=== PATIENT | female | born 1955 | race Caucasian/White ===

== ENCOUNTER 2018-01-05 12:30 | Outpatient (CLI) | payer OTHER ==
--- NOTE | 2018-01-12 11:49 | MMO ---
BILATERAL SCREENING MAMMOGRAM: Date: 01/05/18 HISTORY: Screening. COMPARISON: Mammograms from 2016, 2017 and 2016. TECHNIQUE: Bilateral screening CC and MLO mammograms. This patient's mammogram was interpreted with the assistance of computer-aided detection. FINDINGS: There are scattered fibroglandular densities. Multiple bilateral breast nodules are similar. No new s uspicious mass, architectural distortion, or microcalcifications. IMPRESSION: BIRADS 2: Benign Finding(s) Continued annual mammographic screening is recommended. POS: EZEQUIEL
== END 2018-01-05 12:31 | disposition home or self-care (01) ==
LOC: SCSMAMMO 12:30
PROVIDERS: ATTEND Family Medicine
DX: Z12.31 Encounter for screening mammogram for malignant neoplasm of breast (principal)
CPT/HCPCS: 77067

== ENCOUNTER 2019-03-29 10:20 | Outpatient (CLI) | payer MEDICARE, OTHER | END 2019-03-29 10:21 | disposition home or self-care (01) | LOC: DTY/OP 10:20 | PROVIDERS: ATTEND Surgery | DX: E66.01 Morbid (severe) obesity due to excess calories (principal) | CPT/HCPCS: 97802 ==

== ENCOUNTER 2019-05-01 06:06 | Outpatient (CLI) | payer MEDICARE, OTHER ==
[2019-05-01 10:51] LABS: #Basophils 0.1 thou/uL (0.0-0.2); #Eosinphils 0.1 thou/uL (0.0-0.7); #Lymphocytes 2.1 thou/uL (1.20-3.40); #Monocytes 0.5 thou/uL (0.11-0.59); #Neutrophils 4.2 thou/uL (1.40-6.50); %Basophils 0.7 % (0.0-1.0); %Eosinophils 1.7 % (0.0-10.0); %Lymphocytes 30.2 % (21.0-51.0); %Monocytes 7.5 % (0.0-10.0); %Neutrophils 59.9 % (42.0-75.0); Mean Corpuscular HGB CONC 33.8 g/dL (32.0-36.0); Mean Corpuscular Volume 88.7 fL (78.0-98.0); Mean Platelet Volume 7.2 fL (7.4-10.4); Platelet Count 261 thou/uL (130-400); RBC Distribution Width 11.6 % (11.5-14.5); Red Blood Cell (RBC) Count 4.66 mill/uL (4.20-5.40)
[2019-05-01 10:58] LABS: Hemoglobin A1c 5.3 % (4.0-6.0)
[2019-05-01 11:11] LABS: ALT (SGPT) 21 U/L (8-55); AST (SGOT) 26 U/L (5-34); Albumin 4.6 g/dL (3.4-4.8); Alkaline Phosphatase 67 U/L (40-110); Anion Gap 16 mmol/L (10-20); BUN (Urea Nitrogen) 21 mg/dL (9.8-20.1); Bilirubin, Direct 0.2 mg/dL (0.1-0.3); Bilirubin, Total 0.5 mg/dL (0.2-1.2); Calc. Creatinine Clearance 0 mL/min (70-130); Calcium 9.5 mg/dL (7.8-10.44); Carbon Dioxide 24 mmol/L (23-31); Chloride 105 mmol/L (98-107); Estimated GFR-MDRD 56; Globulin 2.7 g/dL (2.4-3.5); Glucose 94 mg/dL (80-115); Potassium 4.6 mmol/L (3.5-5.1); Protein, Total 7.3 g/dL (6.0-8.3); Sodium 140 mmol/L (136-145)
--- NOTE | 2019-05-01 12:12 | RAD ---
2 VIEWS CHEST: Date: 05/01/19 COMPARISON: None. HISTORY: Preoperative radiograph. FINDINGS: Two views of the chest show normal sized cardiomediastinal silhouette. There is no evidence of consol idation, mass, or pleural effusion. The bones are unremarkable. IMPRESSION: No evidence of acute cardiopulmonary disease. POS: T[facility]
== END 2019-05-01 06:07 | disposition home or self-care (01) ==
LOC: LABBT 06:06
PROVIDERS: ATTEND Surgery
DX: Z01.818 Encounter for other preprocedural examination (principal); I51.9 Heart disease, unspecified; E78.5 Hyperlipidemia, unspecified; Z68.42 Body mass index [BMI] 45.0-49.9, adult
CPT/HCPCS: 71046; 80053; 80076; 83036; 85025

== ENCOUNTER 2019-05-01 12:00 | Inpatient (IN) | payer MEDICARE, OTHER ==
[2019-05-09] MEDS ORDERED: Fentanyl 100 MCG/2 ML VIAL ONE ×2 (07:36→10:58)
[2019-05-09] MEDS ORDERED: Heparin 5,000 UNITS/ML VIAL ONE (08:05)
[2019-05-09] MEDS ORDERED: Bupivacaine/Epinephrine 0.5% 10 ML VIAL ONE (08:41)
[2019-05-09] MEDS ORDERED: Dexamethasone 20 MG/5 ML VIAL ONE (09:45)
[2019-05-09] MEDS ORDERED: Lidocaine 1% PF 5 ML VIAL ONE (09:45)
[2019-05-09] MEDS ORDERED: PROPOFOL 200 MG/20 ML VIAL ONE (09:45)
[2019-05-09] MEDS ORDERED: Rocuronium Bromide 50 MG/5 ML VIAL ONE (09:45)
[2019-05-09] MEDS ORDERED: Ketorolac Tromethamine 30 MG/ML VIAL ONE (09:45)
[2019-05-09] MEDS ORDERED: Ondansetron PF 4 MG/2 ML Vial ONE (09:45)
[2019-05-09] MEDS ORDERED: Glycopyrrolate 0.2 MG/ML 5 ML SYRINGE ONE (09:45)
[2019-05-09] MEDS ORDERED: ePHEDrine/0.9% NaCl/PF SYRINGE 50 mg/10 ml ONE (09:45)
[2019-05-09] MEDS ORDERED: Promethazine HCl 25 MG/ML VIAL IM PRN ×4 (10:35→15:57)
[2019-05-09] MEDS ORDERED: diphenhydrAMINE 50 MG/ML VIAL IM PRN (10:35)
[2019-05-09] MEDS ORDERED: Ondansetron PF 4 MG/2 ML Vial IVP PRN ×2 (10:35→15:57)
[2019-05-09] MEDS ORDERED: fentaNYL Citrate/PF 2,000 MCG in Sodium Chloride 0.9% 60 ML IV PRN (10:35)
[2019-05-09] MEDS ORDERED: Ondansetron HCl/PF 4 MG/2 ML Vial IVP PRN ×2 (10:35→10:37)
[2019-05-09] MEDS ORDERED: Zolpidem Tartrate 5 MG TAB PO PRN (10:35)
[2019-05-09] MEDS ORDERED: diphenhydrAMINE 50 MG/ML VIAL IVP PRN ×2 (10:35→15:57)
[2019-05-09] MEDS ORDERED: Naloxone HCl 0.4 mg/ml Vial IV PRN (10:35)
[2019-05-09] MEDS ORDERED: diphenhydrAMINE 25 MG CAP PO PRN (10:35)
[2019-05-09] MEDS ORDERED: Promethazine HCl 25 MG/ML VIAL SLOW IVP PRN ×2 (10:35→10:37)
[2019-05-09] MEDS ORDERED: Communication Order-Pharmacy FS SCH (10:45)
[2019-05-09] MEDS ORDERED: D5 1/2 NS w/20 mEq KCL 1,000 ML ONE (11:32)
--- NOTE | 2019-05-09 11:59 | OP ---
DATE OF PROCEDURE: 05/09/2019 PREOPERATIVE DIAGNOSES: 1. Morbid obesity with a body mass index of 43. 2. Gastroesophageal reflux disease. 3. Hypertension. 4. Hypercholesteremia. POSTOPERATIVE DIAGNOSES: 1. Morbid obesity with a body mass index of 43. 2. Gastroesophageal reflux disease. 3. Hypertension. 4. Hypercholesteremia. 5. Paraesophageal hiatal hernia. PROCEDURES PERFORMED: 1. Laparoscopic sleeve gastrectomy with [place] staple line reinforcements and 38-[place] bougie. 2. Laparoscopic hiatal hernia repair without fundoplication or mesh. 3. Esophagogastroduodenoscopy. ANESTHESIA: General. ESTIMATED BLOOD LOSS: Minimal. COMPLICATIONS: None. SPECIMEN: Stomach. FINDINGS: Normal postoperative sleeve. DESCRIPTION OF PROCEDURE: The patient was taken to the operating room and laid supine on the operating room table. After general anesthetic was obtained, arms and legs were double strapped to bariatric table. OG tube was used to decompress the stomach. The abdomen was prepped and draped in a sterile fashion. Left subcostal 5-mm Optiview trocar was placed in usual fashion. High-flow pneumoperitoneum was obtained. Left and right abdominal 12-mm ports were placed as well as right subcostal 5-mm port. The patient was placed in reverse Trendelenburg position. A 5-mm incision was made at the xiphoid. Then, Megan was used to raise the liver off the GE junction. The short gastric was taken down to a distance of 5 cm proximal to the pylorus all the way to the left lisa of diaphragm. Left lisa, posterior fundus, and angle of His were completely dissected revealing a small hiatal hernia. The gastrohepatic ligament was opened exposing the right lisa of the diaphragm. Circumferential dissection of the esophagus was performed bringing the GE junction back into the abdominal cavity in the small paraesophageal component as well. The crura were closed with 1 Ethibond suture posteriorly in the tie knot system after the 38 bougie was placed. The 38 bougie had been brought and its tip left in the antrum of the stomach. Multiple loads of an [place] stapling device with [place] staple line reinforcements used to perform the sleeve. The first was fired up at a distance of 6 cm proximal to the pylorus angled up towards the incisura. Multiple loads were then fired up along the bougie. Stomach was completely transected at the angle of His. The stomach was removed from the left abdominal incision. This fascial defect was closed using GraNee needle and 0 Vicryl tie. All port sites were infiltrated using local anesthetic. There was no bleeding on the staple lines. Megan was removed under direct visualization without bleeding. Vicryl and GraNee needle were used to close the fascial defect from the left abdominal incision. All ports were removed under camera visualization without bleeding. Pneumoperitoneum was let down. Vicryl was used to close the fascia from the left abdominal incision. All incisions were irrigated and closed using 4-0 Monocryl and Dermabond. The patient was sent to Recovery in stable condition. All instrument counts, needle counts, and lap counts were correct. Job ID: [id number]
[2019-05-09] MEDS ORDERED: Dextrose 50% Abboject 50 ML SYRINGE SLOW IVP PRN (15:57)
[2019-05-09] MEDS ORDERED: Hydrocodone-Acetamin 15 ML UDCUP PO PRN (15:57)
[2019-05-09] MEDS ORDERED: hydrALAZINE 20 MG/ML VIAL SLOW IVP PRN (15:57)
[2019-05-09] MEDS ORDERED: Dextrose 5% in Water 1,000 ML IV PRN (15:57)
[2019-05-09] MEDS: Acetaminophen 1,000 MG in Premix Bag 1 BAG IVPB SCH ×2 (18:54→23:46)
[2019-05-09] MEDS: D5 1/2 NS w/20 mEq KCL 1,000 ML IV SCH ×2 (20:52→21:02)
[2019-05-09] MEDS ORDERED: Enoxaparin Sodium 40 MG/0.4 ML SYRINGE SC SCH (21:00)
[2019-05-10 04:41] LABS: #Lymphocytes 1.5 thou/uL (1.20-3.40); #Monocytes 0.9 thou/uL (0.11-0.59); #Neutrophils 7.9 thou/uL (1.40-6.50); %Basophils 0.1 % (0.0-1.0); %Eosinophils 0.1 % (0.0-10.0); %Lymphocytes 14.1 % (21.0-51.0); %Monocytes 8.6 % (0.0-10.0); %Neutrophils 77.1 % (42.0-75.0); Hemoglobin 12.1 g/dL (12.0-16.0); Mean Corpuscular HGB CONC 33.7 g/dL (32.0-36.0); Mean Corpuscular Hemoglobin 30.2 pg (27.0-31.0); Mean Corpuscular Volume 89.7 fL (78.0-98.0); Platelet Count 236 thou/uL (130-400); RBC Distribution Width 11.8 % (11.5-14.5); White Blood Cell (WBC) Count 10.3 thou/uL (4.8-10.8)
[2019-05-10 05:02] LABS: Anion Gap 12 mmol/L (10-20); BUN (Urea Nitrogen) 16 mg/dL (9.8-20.1); Calc. Creatinine Clearance 106 mL/min (70-130); Calcium 8.3 mg/dL (7.8-10.44); Carbon Dioxide 20 mmol/L (23-31); Chloride 108 mmol/L (98-107); Estimated GFR-MDRD 58; Glucose 131 mg/dL (80-115); Potassium 4.3 mmol/L (3.5-5.1); Sodium 136 mmol/L (136-145)
[2019-05-10] MEDS: Acetaminophen 1,000 MG in Premix Bag 1 BAG IVPB SCH ×2 (05:30→11:31)
[2019-05-10] MEDS: D5 1/2 NS w/20 mEq KCL 1,000 ML IV SCH (05:30)
--- NOTE | 2019-05-10 07:27 | PDOC.GSPN ---
Surgery Progress Note: Subj - Subjective Patient reports: pain well controlled, tolerating liquids well, voiding w/o difficulty, no flatus Narrative: Pleasant 64 yo female s/p gastric sleeve & hiatal hernia repair 09 May 2019. Has not passed flatus yet, but otherwise doing very well. Has been up walking around without problems. Has been tolerating liquids without problem. Reports only minor pain since the procedure & denies no pain now. Reports 1 episode of urinary retention yesterday post-procedure for which she required catheterization, but has been able to urinate several times without problem since. Denies n/v. Surgery Progress Note: Obj - Vital signs Vital signs: Vital Signs - Most Recent Temp Pulse Resp BP Pulse Ox 98.3 F 60 18 139/84 95 05/10/19 03:13 05/10/19 03:13 05/10/19 03:13 05/10/19 03:13 05/10/19 03:13 - Physical Exam General: no distress, well developed, well nourished, no pain, obese Cardiovascular: regular rate and rhythm, no murmur Respiratory: clear to auscultation, normal expansion, normal respiratory effort , breath sounds present Abdomen: soft, non tender, positive bowel sounds Hernia: none Psychiatric: oriented to person, speech is normal Wound: healing well Surgery Progress Note: Results - Labs Result Diagrams: 05/10/19 04:29 05/10/19 04:29 Lab results: Laboratory Results - last 24 hr 05/10/19 05/10/19 04:29 04:29 WBC 10.3 RBC 4.00 L Hgb 12.1 Hct 35.9 L MCV 89.7 MCH 30.2 MCHC 33.7 RDW 11.8 Plt Count 236 MPV 7.0 L Neutrophils % 77.1 H Lymphocytes % 14.1 L Monocytes % 8.6 Eosinophils % 0.1 Basophils % 0.1 Neutrophils # 7.9 H Lymphocytes # 1.5 Monocytes # 0.9 H Eosinophils # 0.0 Basophils # 0.0 Sodium 136 Potassium 4.3 Chloride 108 H Carbon Dioxide 20 L Anion Gap 12 BUN 16 Creatinine 0.97 Estimated GFR (MDRD) 58 Glucose 131 H Calcium 8.3 Surgery Progress Note: A/P - Problem (1) S/P bariatric surgery Current Visit: Yes Status: Acute - Plan Plan: Doing exceptionally well s/p gastric sleeve & hiatal hernia repair 09 May 2019. Anticipate continued progress & d/c per standard gastric sleeve protocol.
[2019-05-10 07:46] VITALS: BP 149/88; TEMP 98.2
[2019-05-10] MEDS ORDERED: Pantoprazole 40 MG VIAL IVP SCH (09:00)
[2019-05-10 09:20] VITALS: BMI 43.2
== END 2019-05-10 11:46 | disposition home or self-care (01) | DRG 621 ==
LOC: SURG A 05-09 07:02
PROVIDERS: ADMIT Surgery; ATTEND Surgery
PROC: 0DB64Z3 Excision of Stomach, Percutaneous Endoscopic Approach, Vertical (ICD-10-PCS; principal; 2019-05-09)
PROC: 0BQT4ZZ Repair Diaphragm, Percutaneous Endoscopic Approach (ICD-10-PCS; 2019-05-09)
PROC: 0DJ08ZZ Inspection of Upper Intestinal Tract, Via Natural or Artificial Opening Endoscopic (ICD-10-PCS; 2019-05-09)
DX: E66.01 Morbid (severe) obesity due to excess calories (principal); E78.5 Hyperlipidemia, unspecified; K21.9 Gastro-esophageal reflux disease without esophagitis; I10 Essential (primary) hypertension; E78.00 Pure hypercholesterolemia, unspecified; K44.9 Diaphragmatic hernia without obstruction or gangrene; R33.9 Retention of urine, unspecified; Z88.9 Allergy status to unspecified drugs, medicaments and biological substances; Z79.82 Long term (current) use of aspirin; Z68.41 Body mass index [BMI] 40.0-44.9, adult; Z79.899 Other long term (current) drug therapy
CPT/HCPCS: 36415; 80048; 85025; 88307; 88312; C9113; J0131; J0690; J1100; J1644; J1650; J1885; J2001; J2405; J2704; J3010; J3490